=== PATIENT | female | born 1950 | race Caucasian/White ===

== ENCOUNTER 2017-05-23 23:00 | Observation (INO) | payer OTHER ==
[~2017-05-23] VITALS: Ht 160 cm; Wt 87.0 kg
[~2017-05-23 23:00] MED LIST: MACR100C2 PO
[2017-05-23 23:37] VITALS: BP 162/91; PULSE 94; RESP 18; TEMP 98.4; O2SAT 96
[2017-05-24] VITALS (7 sets, daily range): BP systolic 156–179; BP diastolic 84–88; PULSE 70–90; RESP 16–17; TEMP 98.2–98.4; O2SAT 95–100
[2017-05-24] MEDS ORDERED: LISINOPRIL 10 MG TAB PO SCH (09:00)
[2017-05-24] MEDS ORDERED: cloNIDine HCL 0.1 MG TAB PO PRN (09:00)
--- NOTE | 2017-05-24 09:01 | HHI.HP ---
HPI Primary Care Physician Unknown Chief Complaint Chest pain History of Present Illness This is a 66-year-old female that presents to ED in [place] to be evaluated for chest discomfort and was subsequently transported via [facility] to the chest pain center to further evaluate her discomfort. States that prior to having the discomfort, the prior week she felt fatigued. Then yesterday as she was walking out to her car after doing some shopping at [employer] she developed a weird feeling in her legs and then developed a discomfort in her chest. The discomfort lasted for hours. Found nothing to worsen or improve it. Denied shortness of breath, nausea, or diaphoresis. Denies history of CAD. Denies recent illness. Denies fevers or chills. Currently feeling okay. Review of Systems General: Patient denies fevers, chills, and recent travel. HEENT: Patient denies headache, sore throat, difficulty swallowing. Cardiovascular: Has the chest discomfort as mentioned above. Denies sensation of heart beating rapidly or irregularly. No syncope. Denies diaphoresis. Respiratory: Denies shortness of breath or inspirational chest discomfort. Denies coughing wheezing or hemoptysis. GI: Patient denies nausea, vomiting, diarrhea, abdominal pain, bloody stools. Musculoskeletal: Patient denies joint pain or edema. Denies calf pain or edema. Neurovascular: Patient denies numbness, tingling, weakness in extremities. Denies headache. Genitourinary: Denies dysuria hematuria or frequency with urination. Endocrine: Denies polyuria and polydipsia. Hematologic: Denies easy bruising. Skin: Denies rash or itching. Past Family Social History Allergies: Coded Allergies: Penicillins (Verified Allergy, Mild, Hives, 05/23/17) Sulfa (Sulfonamide Antibiotics) (Verified Allergy, Mild, Hives, 05/23/17) Past Medical History Denies hypertension, hyperlipidemia, diabetes, or CAD. Past Surgical History and cholecystectomy. Reported Medications Reported Meds & Active Scripts Active Macrobid (Nitrofurantoin Monohydrate Macrocrystals) 100 Mg Capsule 100 Mg PO BID 10 Days Active Ordered Medications Current Medications Medications (Trade) Dose Ordered Sig/Alfie Route Start Time Stop Time Status Last Admin (Prinivil) 10 mg DAILY PO 05/24/17 09:00 05/24/17 08:46 (Catapres) 0.1 mg Q4H PRN PO 05/24/17 09:00 05/24/17 08:46 Family History Denies family history of CAD. Social History Denies tobacco abuse. Denies alcohol abuse or illicit drug use. Physical Exam Vital Signs Vital Signs Date Time Temp Pulse Resp B/P (MAP) Pulse Ox O2 Delivery O2 Flow Rate FiO2 05/24/17 08:01 98.4 90 16 179/88 (118) 95 05/24/17 04:00 72 05/24/17 03:58 98 05/24/17 03:36 98.2 88 16 156/84 (108) 98 05/24/17 00:43 85 05/23/17 23:37 98.4 94 18 162/91 (114) 96 Physical Exam GENERAL: This is a well-nourished, well-developed patient, in no apparent distress. Patient speaks in clear complete sentences. Patient is pleasant. HEENT: Head is atraumatic and normocephalic. Neck is supple without lymphadenopathy and trachea is midline. No JVD or carotid bruits. CARDIOVASCULAR: Regular rate and rhythm without murmurs, gallops, or rubs. RESPIRATORY: Clear to auscultation. Breath sounds equal bilaterally. No wheezes , rales, or rhonchi. Chest wall is nontender. No use of accessory muscles. GASTROINTESTINAL: Abdomen is nontender, nondistended. Abdomen soft. No obvious pulsatile mass or bruit. No CVA tenderness. Strong femoral pulses bilaterally. Normal bowel sounds in all quadrants. MUSCULOSKELETAL: Patient is moving upper and lower extremities freely. No calf tenderness or edema, no Homans sign. Strong pulses in upper and lower extremities. NEUROLOGICAL: Patient is alert and oriented. Cranial nerves 2-12 are grossly intact. No focal deficits and speech is clear. SKIN: No rash and turgor is normal. Laboratory Laboratory Tests Test 05/24/17 00:30 Troponin I LESS THAN 0.02 Imaging Chest x-ray reveals nothing acute. CTA read by radiologist as no pulmonary embolus. Course EKGs are sinus rhythm without significant ST segment depressions or elevations. Caprini VTE Risk Assessment Caprini VTE Risk Assessment: Mod/High Risk (score >= 2) Caprini Risk Assessment Model Point Value = 1 Point Value = 2 Point Value = 3 Point Value = 5 Age 41-60 Minor surgery BMI > 25 kg/m2 Swollen legs Varicose veins or History of unexplained or recurrent spontaneous Oral contraceptives or hormone replacement Sepsis (< 1 month) Serious lung disease, including pneumonia (< 1 month) Abnormal pulmonary function Acute myocardial infarction Congestive heart failure (< 1 month) History of inflammatory bowel disease Medical patient at bed rest Age 61-74 Arthroscopic surgery Major open surgery (> 45 min) Laparoscopic surgery (> 45 min) Malignancy Confined to bed (> 72 hours) Immobilizing plaster cast Central venous access Age >= 75 History of VTE Family history of VTE Factor V Leiden Prothrombin [id number] Lupus anticoagulant Anticardiolipin antibodies Elevated serum homocysteine Heparin-induced thrombocytopenia Other congenital or acquired thrombophilia Stroke (< 1 month) Elective arthroplasty Hip, pelvis, or leg fracture Acute spinal cord injury (< 1 month) Prophylaxis Regimen Total Risk Factor Score Risk Level Prophylaxis Regimen 0-1 Low Early ambulation 2 Moderate Order ONE of the following: *Sequential Compression Device (SCD) *Heparin 5000 units SQ BID 3-4 Higher Order ONE of the following medications: *Heparin 5000 units SQ TID *Enoxaparin/Lovenox 40 mg SQ daily (WT < 150 kg, CrCl > 30 mL/min) *Enoxaparin/Lovenox 30 mg SQ daily (WT < 150 kg, CrCl > 10-29 mL/min) *Enoxaparin/Lovenox 30 mg SQ BID (WT < 150 kg, CrCl > 30 mL/min) AND/OR *Sequential Compression Device (SCD) 5 or more Highest Order ONE of the following medications: *Heparin 5000 units SQ TID (Preferred with Epidurals) *Enoxaparin/Lovenox 40 mg SQ daily (WT < 150 kg, CrCl > 30 mL/min) *Enoxaparin/Lovenox 30 mg SQ daily (WT < 150 kg, CrCl > 10-29 mL/min) *Enoxaparin/Lovenox 30 mg SQ BID (WT < 150 kg, CrCl > 30 mL/min) AND *Sequential Compression Device (SCD) Assessment and Plan Assessment and Plan * Chest pain: Patient has had serial cardiac enzymes and EKGs for ruling out purposes. She was seen by Dr. Tijerina of cardiology in the chest pain center and will undergo a Mehran protocol ETT. He should to be discharged home if her stress test is nonischemic with instructions to follow-up with PCP. A urinalysis had rare white blood cell clumps. There are no leukoesterase or nitrates. Culture was indicated however patient is asymptomatic. Patient will not be treated for this at this time and should follow-up with her PCP for repeat urinalysis. Return to ED for interval issues. * Hypertension: Patient will be started on lisinopril. She should keep a log her blood pressure readings and discussed with PCP at follow-up. Patient is stable this time. She is agreeable to this plan. Cirilo Simon May 24, 2017 09:01
--- NOTE | 2017-05-24 10:12 | HHI.DCPOC ---
Discharge Care Plan Diagnosis: (1) Chest pain (2) Hypertension Goals to Promote Your Health * To prevent worsening of your condition and complications * To maintain your health at the optimal level Directions to Meet Your Goals Take your medications as prescribed Follow your dietary instruction Follow activity as directed Keep your appointments as scheduled Take your immunizations and boosters as scheduled If your symptoms worsen call your PCP, if no PCP go to Urgent Care Center or Emergency Room Smoking is Dangerous to Your Health. Avoid second hand smoke Call the 24-hour hour crisis hotline for domestic abuse at Cirilo Simon May 24, 2017 10:12
--- NOTE | 2017-05-24 10:22 | TR ---
Date Performed: 05/24/2017 Time Performed: 09:36:55 DOCTOR: Navya Tijerina DRUG LIST: CLINICAL HISTORY: REASON FOR TEST: Chest pain REASON FOR ENDING: OBSERVATION: CONCLUSION: LILLIAM PROTOCOL. NO CP. TEST STOPPED AFTER EXCEEDING GOAL HR SECONDARY TO SOB AND LEG FATIGUE.Maximum EQ=721 Maximum GC=213/90 Total Exercise Time=8:03 COMMENTS: No ischemia
--- NOTE | 2017-05-25 07:39 | EKG ---
Date Performed: 05/23/2017 Time Performed: 23:54:51 PTAGE: 66 years EKG: Sinus rhythm NORMAL ECG NO PREVIOUS TRACING DOCTOR: Navya Tijerina Interpretating Date/Time 05/25/2017 07:38:08
== END 2017-05-24 10:46 | disposition home or self-care (01) ==
LOC: NEDDLT 23:00 → NEPGCP 23:10
PROVIDERS: ADMIT Internal Medicine Cardiovascular Disease; ATTEND Internal Medicine Cardiovascular Disease
DX: R07.89 Other chest pain (principal); I10 Essential (primary) hypertension; R53.83 Other fatigue; Y93.01 Activity, walking, marching and hiking; R79.89 Other specified abnormal findings of blood chemistry
CPT/HCPCS: 71046; 71275; 80048; 81001; 82550; 82552; 83735; 84484; 85025; 85610; 85730; 87086; 93005; 93017; 96360; 99285; G0378; J7040; Q9967